=== PATIENT | female | born 1975 | race Caucasian/White ===

== ENCOUNTER 2022-01-17 19:28 | Emergency (ER) | payer OTHER ==
[~2022-01-17] VITALS: Ht 162.6 cm; Wt 86.2 kg
[2022-01-17 19:30] VITALS: BP 141/99
--- NOTE | 2022-01-17 19:41 | NUR ---
PT TAKEN TO BED 11
--- NOTE | 2022-01-17 20:02 | NUR ---
Dr. Ashley examining patient.
--- NOTE | 2022-01-17 20:20 | NUR ---
47 YO F BIB HOME WITH C/C OF 9/10 LOWER BACK PAIN X3DAYS. 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 DENIES TAKING MEDICATION. DENIES RECENT INJURIES. HX:HTN, HIP DYSPLASIA, MIGRAINES
[2022-01-17] MEDS: ACETAMINOPHEN EXTRA STRENGTH 500 MG TAB PO ONE (20:23)
[2022-01-17] MEDS: CYCLOBENZAPRINE 10 MG TAB PO ONE (20:23)
--- NOTE | 2022-01-17 21:25 | NUR ---
PT TAKEN TO RAD.
--- NOTE | 2022-01-17 21:30 | NUR ---
PT RETURN FROM XRAY
--- NOTE | 2022-01-17 21:31 | NUR ---
BACK FROM RAD.
[2022-01-17] MEDS: MORPHINE SULFATE 4 MG/ML SYR IM ONE (21:37)
[2022-01-17 22:07] VITALS: BP 136/88
--- NOTE | 2022-01-17 22:07 | NUR ---
Patient discharged with v/s stable. Written and verbal after care instructions given and explained. Patient verbalized understanding. Ambulatory with steady gait. All questions addressed prior to discharge. Advised to follow up with PMD.
== END 2022-01-17 22:07 | disposition home or self-care (01) ==
LOC: MED 19:28
DX: M62.830 Muscle spasm of back (principal); I10 Essential (primary) hypertension; G43.909 Migraine, unspecified, not intractable, without status migrainosus
CPT/HCPCS: 72110; 96372; 99283; J2270